=== PATIENT | female | born 1940 | race Caucasian/White ===

== ENCOUNTER 2024-03-20 11:48 | Inpatient (IN) | payer MEDICARE, BC, SELFPAY ==
[2024-03-20 11:49] VITALS: BP 92/72; PULSE 110; RESP 20; TEMP 35.7; O2SAT 97; BMI 34.4
--- NOTE | 2024-03-20 12:06 | EDS_ITS ---
<Statement entered by Cody Uribe DO - 03/20/24 13:36> I have personally performed a face to face assessment of the patient and have reviewed the FISH Note. Patient was seen and examined with Lukasz All components of the history and physical confirmed and agreed. History of present illness and physical exam: Patient is a 83-year-old female past medical history of hypertension, hyperlipidemia, hypothyroidism who presented to the emergency department with 2- 1/2 days of redness and pain to the right lower extremity. She states that she did have a procedure done to take off a squamous cell carcinoma that was biopsied on March 04. She notes that she is supposed to have this fully removed later on here coming up. Patient states that she has had chills and shaking and generalized not feeling well with the redness. She notes that yesterday she developed redness in her thigh denies any injuries to the areas. Patient states that she has not anything like this happen in the past. Patient denies any recent antibiotic use. Review of systems: Agree with above Physical exam General: Patient was lying in bed rest comfortably did not appear to be in acute distress Head: Atraumatic, normocephalic Eyes: PERRL bilaterally, EOMI bilaterally, no conjunctival injection noted Neck: Soft, supple, trachea midline Cardiovascular: Regular rate and rhythm no murmurs gallops rubs noted Respiratory: Clear to auscultation bilaterally Abdomen: Soft, nondistended, nontender to palpation, bowel sounds present x 4 Genitourinary: No rashes or lesions noted. No concern for Dia's gangrene Extremities: +5/5 strength noted in the bilateral lower extremities, no pedal edema on exam, patient does have erythema noted to the right lower extremity in the dorsum of the foot this is warm to the touch. Patient also has erythema in the anterior portion of her right thigh. All compartments are soft and compressible. DP pulses +2/4 in the bilateral lower extremities Neurological: Patient following commands knew that she was at [facility] year is 2023. Sensation grossly intact Skin: Warm, dry, see extremities. No sloughing skin no petechia no purpura MDM Patient is a 83-year-old female who presents to the emergency department chief complaint of concern for right lower extremity cellulitis. Patient will have a workup performed here on the differential diagnose includes but limited to cellulitis, erysipelas, DVT although do feel this less likely as she has no history of DVT no recent travel history no recent trauma, thrombophlebitis. Once workup is obtained reviewed she will be reevaluated. Patient's CBC reviewed with significant leukocytosis 21,000, hemoglobin stable at 14.5, platelet count normal at 229. Patient's lactic acid was 2, glucose normal at 121. Patient sodium normal at 137, potassium normal 3.1, creatinine was 1.24. Patient's x-rays are pending we will follow-up on these. At this point I do believe the patient warrants admission to the hospital she given IV antibiotics Rocephin and vancomycin. Patient's case was discussed with hospitalist by nurse practitioner Lukasz who accept the patient for admission. Patient was notified with all question concerns answered. Final impression: Right lower extremity cellulitis Disposition: Patient will be admitted to the hospital for further evaluation management Supervising attending attestation: Cody BRANDON History of Present Illness Chief Complaint: Cellulitis Narrative Narrative: Patient is 83-year-old female with history of hypertension hyperlipidemia, hypothyroidism who presents to the emerged department with 2-1/2 days of redness, pain to the right lower extremity. Patient did have a dermatologic procedure to take a scab off a wound on the right lower leg March 04. Patient noticed the redness 2 days ago. Denies any fever or chills. Denies any history of diabetes. She is concerned secondary to the redness is getting worse is mostly around her foot ankle as well as her upper thigh. Here for evaluation [facility] Social History Smoking Status: Never smoker ROS ROS ED ROS Narrative Constitutional: Negative for fever, chills, weight loss, weakness Eyes: Negative for vision loss, vision change, double vision ENT: Negative for any sore throat, ear pain, congestion Cardiovascular: Negative for any chest pain, tightness, palpitations Respiratory: Negative for any cough, sputum production, hemoptysis, dyspnea, dyspnea on exertion, orthopnea Gastrointestinal: Negative for any abdominal pain, nausea, vomiting, diarrhea, constipation, blood in stool, blood in vomit : Negative for any urinary frequency, dysuria, retention, blood in urine Muscle skeletal: Negative for any neck pain, back pain Neurological: Negative for any headache, syncope, dizziness Skin: Negative for any rashes, itching, abrasions, lacerations. Positive for redness, pain to the right ankle, right thigh Psychiatric: Negative for any depression, anxiety, stress, suicidal ideation, homicidal ideation Hematologic: Negative for any excessive bruising, easy bleeding EXAM Physical Exam Narrative Exam Narrative: Vital signs reviewed. HEET: Head normocephalic atraumatic, TMs clear bilaterally. Posterior pharynx is clear, moist mucous membranes. Nares clear bilaterally. Neck: Supple with no lymphadenopathy or tenderness. No signs of meningismus. Cardiac: Regular rate and rhythm no murmurs gallops or rubs, equal peripheral pulses bilaterally. Respiratory: Lungs clear to auscultation bilaterally. No chest tenderness. Abdomen: Soft, nontender, nondistended. No abdominal bruit or pulsatile masses. No hepatosplenomegaly Extremities: Patient's right lower extremity does show some erythema, warmth to the dorsal aspect of the foot, lateral and medial malleoli area. Patient also has an area of redness to the right thigh. +2 pedal pulse. No pain to the posterior leg. There is no significant redness to the calf. Neuro: Cranial nerves II through XII intact, no focal neurological deficits. Skin: Clean dry and intact with no rash, purpura, petechiae, vesicles or pustules. Backs/flank: No CVA tenderness, no midline spinal tenderness, no deformity. Psych: Normal mood and affect. No SI, HI or acute psychosis. Const Vital Signs: 03/20/24 11:49 Temperature 96.2 F L Temperature Source Temporal Pulse Rate 110 H Respiratory Rate 20 H Blood Pressure 92/72 Blood Pressure Mean 78 Pulse Ox 97 Oxygen Delivery Method Room Air [facility] Lab Data Labs: Laboratory Results - last 24 hr 03/20/24 12:12 WBC 21.8 H RBC 4.55 Hgb 14.5 Hct 44.3 MCV 97.4 MCH 31.9 MCHC 32.7 RDW Std Deviation 49.1 H RDW Coeff of Lewis 13.6 Plt Count 229 MPV 9.4 Immature Gran % (Auto) 0.700 Neut % (Auto) 87.0 H Lymph % (Auto) 5.2 L [place] % (Auto) 6.9 Eos % (Auto) 0.0 Baso % (Auto) 0.2 Absolute Neuts (auto) 18.9 H Absolute Lymphs (auto) 1.13 Nucleated RBC % 0 Diff Path Review May foll Reactive Lymphocytes 1+ Sodium 137 Potassium 3.1 L Chloride 103 Carbon Dioxide 27.0 Anion Gap 7 BUN 20 H Creatinine 1.24 H Estim Creat Clear Calc 36.06 Est GFR (MDRD) Af Amer 53 L Est GFR (MDRD) Non-Af 44 L BUN/Creatinine Ratio 16.1 Glucose 121 H Lactic Acid 2.0 Calcium 9.4 Treatment and Re-Evaluation :: Differential diagnosis includes however is not limited to: DVT, right leg cellulitis, thrombophlebitis, injury Patient appears to be in no obvious respiratory distress, patient's vital signs are stable, patient is nontoxic-appearing. Presenting to the emerged part with redness to the right foot ankle and right upper thigh. My biggest concern is cellulitis. Patient is not diabetic, is not immunocompromise. Patient will receive basic laboratory values, BMP CBC lactic. Laboratory values show a leukocytosis with white blood count of 21.8, patient's chemistries show a potassium of 3.1, creatinine 1.24, lactic acid was 2.0. Patient will receive x-rays of her right thigh, foot and ankle. This is to ensure there is no gas or necrotizing fasciitis. Secondary these findings, the aggressiveness of the cellulitis, I do believe the patient would benefit from admission. Patient be given 1 L normal saline, 2 sets of blood cultures, IV vancomycin, Rocephin will be ordered. Patient will need to be admitted to the hospital. I will speak to the hospitalist. Discharge Plan Triage Chief Complaint: Cellulitis ED Midlevel Provider: Lukasz Caballero ED Provider: Cody Uribe Dx/Rx/DC Orders Clinical Impression: Cellulitis, Leukocytosis, Acute leg pain Primary Care Provider: Kang Keenan Referrals: Kang Keenan MD [Primary Care Provider] - Print Language: Kinyarwanda Disposition Disposition: Acute Care Hospital [facility]
[2024-03-20 12:19] LABS: Absolute Lymphocyte Count 1.13 X10^3/uL (0.83-4.51); Absolute Neutrophil Count 18.9 X10^3/uL (2.0-7.7); Basophil# 0.05 X10^3/uL; Basophil% 0.2 % (0-1); Eosinophil# 0.01 X10^3/uL; Hematocrit 44.3 % (37-47); Hemoglobin 14.5 g/dL (12.0-15.0); Lymphocyte # 1.13 X10^3/ul (0.83-4.51); Lymphocyte % 5.2 % (19-41); Mean Corp Hgb Conc 32.7 g/dL (32-36); Mean Corpuscular Hgb 31.9 pg (27.0-32.0); Mean Corpuscular Volume 97.4 fL (81-99); Mean Platelet Vol. 9.4 fl (6.2-12.0); Monocyte# 1.51 X10^3/uL; Monocyte% 6.9 % (0-10); NRBC Flagged by Analyzer 0 % (0-5); Neutrophil # 18.92 X10^3/uL (2.7-7.7); POSITIVE DIFFERENTIAL YES; Platelet Count 229 K/mm3 (150-450); RBC Distribution Width CV 13.6 % (11.6-14.6); RBC Distribution Width SD 49.1 fl (35.1-43.9); Red Blood Count 4.55 M/mm3 (4.2-5.4); White Blood Count 21.8 K/mm3 (4.4-11.0)
[2024-03-20 12:20] LABS: Differential Indicated SCAN CRITERIA MET
[2024-03-20 12:33] LABS: Anion Gap 7 (5-15); BUN 20 mg/dL (7-18); BUN/Creat Ratio 16.1 RATIO (10-20); Calcium,Total 9.4 mg/dL (8.5-10.1); Chloride 103 mmol/L (98-107); Creatinine, Serum 1.24 mg/dL (0.55-1.02); EST Glomerular Filtration Rate 44 mL/min (>60); Est Glom Filt Rate - Afr Amer 53 mL/min (>60); Estimated Creatinine Clearance 36.06 ml/min; Glucose 121 mg/dL (74-106); Potassium 3.1 mmol/L (3.5-5.1); Sodium Level 137 mmol/L (136-145)
[2024-03-20 12:39] LABS: Reactive Lymphocyte 1+
--- NOTE | 2024-03-20 12:50 | RAD_ITS ---
INDICATION: cellulitis EXAMINATION/TECHNIQUE: X-RAY - RIGHT XR Foot Min 3 Views 3 VIEWS COMPARISON: No relevant prior comparison study available FINDINGS: SOFT TISSUES: Soft tissue swelling over the dorsal aspect of the foot. No gas is seen in the soft tissues. No radiopaque foreign body. BONES/JOINTS: No acute fracture or subluxation.. Plantar calcaneal spur. Preservation of the joint space.. No sclerotic or destructive changes observed. RAD/Foot min 3 Views IMPRESSION: Mild soft tissue swelling. No evidence of acute osseous changes. Electronically Signed: Jay Lester MD at 13:47 EDT ,
--- NOTE | 2024-03-20 12:50 | RAD_ITS ---
INDICATION: cellulitis EXAMINATION/TECHNIQUE: X-RAY - RIGHT XR Ankle Min 3 Views 3 VIEWS COMPARISON: FINDINGS: SOFT TISSUES: Diffuse soft tissue swelling. No radiopaque foreign body. BONES/JOINTS: No acute fracture or subluxation.. Small plantar calcaneal spur. Preservation of the joint space.. No sclerotic or destructive changes observed. RAD/Ankle min 3 Views IMPRESSION: Soft tissues swelling. No evidence of acute fracture. Electronically Signed: Jay Lester MD at 13:44 EDT ,
--- NOTE | 2024-03-20 12:50 | RAD_ITS ---
INDICATION: cellulites EXAMINATION/TECHNIQUE: X-RAY - RIGHT XR Femur Min 2 Views 4 VIEWS COMPARISON: No relevant prior comparison study available FINDINGS: SOFT TISSUES: No soft tissue swelling or gas. No radiopaque foreign body. BONES/JOINTS: No acute fracture or subluxation.. Right hip hemiarthroplasty satisfactory alignment. . No sclerotic or destructive changes observed. RAD/Femur Min 2 Views IMPRESSION: Right hip arthroplasty. Unremarkable soft tissues. Electronically Signed: Jay Lester MD at 13:46 EDT ,
[2024-03-20 12:51] VITALS: BP 116/65; PULSE 89; RESP 16; TEMP 36.5; O2SAT 97
[2024-03-20] MEDS: 0.9% Normal Saline (1000mL) 1,000 ML 999 ML IV (13:10)
--- NOTE | 2024-03-20 13:22 | PCM.HP.STD ---
[facility] - General General Date of Service: 03/20/24 Chief Complaint: malaise. RLE rashes. [facility] Narrative JAZZY ROBLERO, is a 83 F who presents with RLE rash. This is an 83-year-old female with a history of hypothyroidism presents with rash on her right leg. States that Thursday, she was not feeling well was having some low-grade fevers, general malaise and some nausea. Developed a rash on her right ankle as well as her right upper thigh. About 2 weeks ago, she had a biopsy. Found to be squamous cell skin cancer on her upper medial calf on her right leg. Had no issues with that. The area of cellulitis is not confluent with that region, however. She presented to the emergency room and received ceftriaxone and vancomycin. Though the patient was stable, her white count was 20,000 which the hospital service was contacted for admission. [facility] Medical History (Updated 03/20/24 @ 13:35 by Felicia Fontanez) Carpal tunnel syndrome of right wrist Anxiety Hyperlipidemia Hypertension Hypothyroid Home Medications ?Medication ?Instructions ?Recorded ?Last Taken ?Type alprazolam 0.25 mg tablet 0.125 mg PO DAILY PRN anxiety 03/20/24 Unknown History aspirin 81 mg tablet,delayed 81 mg PO DAILY HEART HEALTH 03/20/24 Unknown History release (Adult Aspirin Regimen) latanoprost 0.005 % eye drops 1 drp LEFT EYE QHS OTHER 03/20/24 Unknown History levothyroxine 137 mcg tablet 137 mcg PO DAILY THYROID 03/20/24 Unknown History lisinopril 20 1 tab PO DAILY BLOOD PRESSURE 03/20/24 Unknown History mg-hydrochlorothiazide 25 mg tablet lovastatin 20 mg tablet 20 mg PO DAILY CHOLESTEROL 03/20/24 Unknown History omeprazole 40 mg capsule,delayed 40 mg PO DAILY GERD 03/20/24 Unknown History release Allergy/AdvReac Type Severity Reaction Status Date / Time No Known Allergies Allergy Verified 03/20/24 13:06 Family History (Updated 03/20/24 @ 13:[address] Kapil Marc DO) Other Heart disease Surgical History (Updated 03/20/24 @ 13:35 by Felicia Fontanez) H/O thyroidectomy H/O: hysterectomy History of hip replacement Social History (Updated 03/20/24 @ 13:[address] Kapil Marc DO) Smoking Status: Never smoker alcohol intake: never substance use type: does not use ROS ROS Narrative All review of systems were negative except as mentioned above in the history of present illness and the other review of systems. Vital Signs Vital Signs Vital Signs: 03/20/24 11:49 Temperature 35.7 C L Temperature Source Temporal Pulse Rate 110 H Respiratory Rate 20 H Blood Pressure 92/72 Blood Pressure Mean 78 Pulse Ox 97 Oxygen Delivery Method Room Air Weight Weight: 85.321 kg Body Mass Index (BMI) 34.4 Physical Exam Const alert and no apparent distress HEENT normocephalic, head/scalp atraumatic and hearing grossly normal bilaterally Neck no lymphadenopathy Resp normal respiratory effort, no retractions and no use of accessory muscles Cardio regular rate, regular rhythm, S1 normal heart sound and S2 normal heart sound GI normal to inspection, nondistended, normoactive bowel sounds, soft to palpation, non-tender and non-distended Extremity normal to inspection Skin Skin Narrative: Skin biopsy site on right medial calf is with scab and without any erythema surrounding. She does have macular erythema around her right foot and ankle that is circumferential. No fluctuance nor induration appreciated. She also has a separate macular region in her right anterior upper thigh. Again without any fluctuance or induration. Results Lab / Micro Data Attestation: I reviewed the patient's lab results. 03/20/24 12:12 03/20/24 12:12 Labs: Laboratory Results - last 24 hr 03/20/24 12:12: WBC 21.8 H, RBC 4.55, Hgb 14.5, Hct 44.3, MCV 97.4, MCH 31.9, MCHC 32.7, RDW Std Deviation 49.1 H, RDW Coeff of Lewis 13.6, Plt Count 229, MPV 9.4, Immature Gran % (Auto) 0.700, Neut % (Auto) 87.0 H, Lymph % (Auto) 5.2 L, [place] % (Auto) 6.9, Eos % (Auto) 0.0, Baso % (Auto) 0.2, Absolute Neuts (auto) 18.9 H, Absolute Lymphs (auto) 1.13, Nucleated RBC % 0, Diff Path Review May foll, Reactive Lymphocytes 1+, Sodium 137, Potassium 3.1 L, Chloride 103, Carbon Dioxide 27.0, Anion Gap 7, BUN 20 H, Creatinine 1.24 H, Estim Creat Clear Calc 36.06, Est GFR (MDRD) Af Amer 53 L, Est GFR (MDRD) Non-Af 44 L, BUN/Creatinine Ratio 16.1, Glucose 121 H, Lactic Acid 2.0, Calcium 9.4 Assessment & Plan Assessment/Plan (1) Cellulitis: PLAN: Meets sepsis criteria based on SIRS 3/4. Though her qSOFA is 1. IV fluids. RLE cellulitis with 2 separate lesions the right ankle region as well as right upper thigh. The right upper thigh may be more reactive but certainly concerning that there could be a separate cellulitis. Particular if the patient self inoculated. Continue with antibiotics with ampicillin/sulbactam and vancomycin. Monitor for improvement. Anticipate the patient would require 1 to 2 days of IV antibiotics given her initial presentation. PLAN: Plan Chronic conditions Hypothyroidism: Continue levothyroxine Hyperlipidemia: Continue with statin Hypertension: Continue with lisinopril/HCTZ VTE prophylaxis with enoxaparin CODE STATUS: Addressed with the patient. Patient wishes to be full code. Discussed with the patient's family at bedside.
[2024-03-20] MEDS: Ceftriaxone 1 GM/50 ML BAG IV (13:26)
[2024-03-20 13:51] VITALS: BP 116/65; PULSE 76; RESP 18; TEMP 36.4; O2SAT 98
[2024-03-20 14:00] VITALS: BP 105/66; PULSE 87; RESP 18; TEMP 36.3; O2SAT 98
[2024-03-20 14:02] VITALS: BMI 34.4
[2024-03-20] MEDS: Vancomycin HCl 2,000 MG in 0.9% Normal Saline (500mL Bag) 500 ML 250 MG IV (15:27)
--- NOTE | 2024-03-20 15:40 | PCM.RX.CS ---
Consult Antibiotic Management Pharmacy has been consulted to manage selected antibiotic: Vancomycin Type of Intervention Type of Consult: New start Suspected Infection Suspected Infection: Skin/Soft tissue Prior Doses of Antibiotics Prior Doses of Antibiotics Received/Current Regimen: Vancomycin 2000 mg IV x 1 given 03/22/24 @ 1530 Labs Labs: Sodium 137 mmol/L (136-145) 03/20/24 12:12 Potassium 3.1 mmol/L (3.5-5.1) L 03/20/24 12:12 Chloride 103 mmol/L (98-107) 03/20/24 12:12 Carbon Dioxide 27.0 mmol/L (21.0-32.0) 03/20/24 12:12 Anion Gap 7 (5-15) 03/20/24 12:12 BUN 20 mg/dL (7-18) H 03/20/24 12:12 Creatinine 1.24 mg/dL (0.55-1.02) H 03/20/24 12:12 Est GFR (MDRD) Af Amer 53 mL/min (>60) L 03/20/24 12:12 Est GFR (MDRD) Non-Af 44 mL/min (>60) L 03/20/24 12:12 BUN/Creatinine Ratio 16.1 RATIO (10-20) 03/20/24 12:12 Glucose 121 mg/dL (74-106) H 03/20/24 12:12 Dosing Weight Weight used for dosin kg Estimated Creatinine Clearance Estimated Creatinine Clearance: ~36 Goal Trough Goal Trough: 15-20 mcg/mL Pharmacy Plan for Drug Dosing Pharmacy Plan for Drug Dosing: Vancomycin 2000 mg IV loading dose x 1, followed by 1250 mg Q24H Pharmacy Service will continue to monitor and adjust dosing as required. Follow-Up Labs Follow-Up Labs: Trough: Vancomycin Date/Time Labs Ordered Labs to be done on [date and time ordered]: 03/22/24 @ 1530
[2024-03-20 16:15] LABS: Reflex Lactate? Y
[2024-03-20 17:22] LABS: Lactic Acid 1.2 mmol/L (0.4-1.9)
[2024-03-20] MEDS: Ampicillin/Sulbactam 3 GM in 0.9% Normal Saline (100mL MB+) 100 ML IV ×2 (18:35→22:27)
[2024-03-20] MEDS: Latanoprost 0.005% 1 Bottle 1 DRP LEFT EYE (22:27)
[2024-03-20 22:31] VITALS: BP 140/75; PULSE 80; RESP 16; TEMP 37.2; O2SAT 97
[2024-03-21 02:48] VITALS: BP 120/77; PULSE 92; RESP 16; TEMP 37.3; O2SAT 95
[2024-03-21 03:56] LABS: Absolute Lymphocyte Count 0.86 X10^3/uL (0.83-4.51); Absolute Neutrophil Count 11.3 X10^3/uL (2.0-7.7); Basophil# 0.04 X10^3/uL; Basophil% 0.3 % (0-1); Eosinophil# 0.05 X10^3/uL; Eosinophils% 0.4 % (0-5); Hematocrit 40.2 % (37-47); Hemoglobin 12.9 g/dL (12.0-15.0); Lymphocyte # 0.86 X10^3/ul (0.83-4.51); Lymphocyte % 6.5 % (19-41); Mean Corp Hgb Conc 32.1 g/dL (32-36); Mean Corpuscular Hgb 31.1 pg (27.0-32.0); Mean Corpuscular Volume 96.9 fL (81-99); Mean Platelet Vol. 9.8 fl (6.2-12.0); Monocyte# 0.92 X10^3/uL; Monocyte% 6.9 % (0-10); NRBC Flagged by Analyzer 0 % (0-5); Neutrophil # 11.31 X10^3/uL (2.7-7.7); Neutrophil % 85.4 % (47-70); Platelet Count 222 K/mm3 (150-450); RBC Distribution Width CV 13.7 % (11.6-14.6); RBC Distribution Width SD 49.1 fl (35.1-43.9); Red Blood Count 4.15 M/mm3 (4.2-5.4); White Blood Count 13.3 K/mm3 (4.4-11.0)
[2024-03-21 04:16] LABS: Anion Gap 5 (5-15); BUN 19 mg/dL (7-18); BUN/Creat Ratio 24.2 RATIO (10-20); Calcium,Total 9.2 mg/dL (8.5-10.1); Chloride 105 mmol/L (98-107); Creatinine, Serum 0.79 mg/dL (0.55-1.02); EST Glomerular Filtration Rate 75 mL/min (>60); Est Glom Filt Rate - Afr Amer 90 mL/min (>60); Estimated Creatinine Clearance 55.89 ml/min; Glucose 124 mg/dL (74-106); Potassium 3.1 mmol/L (3.5-5.1); Sodium Level 139 mmol/L (136-145)
[2024-03-21] MEDS: Levothyroxine 137 MCG Tablet PO (05:55)
[2024-03-21] MEDS: Ampicillin/Sulbactam 3 GM in 0.9% Normal Saline (100mL MB+) 100 ML IV ×4 (05:55→23:44)
--- NOTE | 2024-03-21 07:21 | PCM.RX.CS ---
Consult Antibiotic Management Pharmacy has been consulted to manage selected antibiotic: Vancomycin Type of Intervention Type of Consult: Follow-up Suspected Infection Suspected Infection: Skin/Soft tissue Labs Labs: Sodium 139 mmol/L (136-145) 03/21/24 03:29 Potassium 3.1 mmol/L (3.5-5.1) L 03/21/24 03:29 Chloride 105 mmol/L (98-107) 03/21/24 03:29 Carbon Dioxide 29.0 mmol/L (21.0-32.0) 03/21/24 03:29 Anion Gap 5 (5-15) 03/21/24 03:29 BUN 19 mg/dL (7-18) H 03/21/24 03:29 Creatinine 0.79 mg/dL (0.55-1.02) 03/21/24 03:29 Est GFR (MDRD) Af Amer 90 mL/min (>60) 03/21/24 03:29 Est GFR (MDRD) Non-Af 75 mL/min (>60) 03/21/24 03:29 BUN/Creatinine Ratio 24.2 RATIO (10-20) H 03/21/24 03:29 Glucose 124 mg/dL (74-106) H 03/21/24 03:29 Goal Trough Goal Trough: 15-20 mcg/mL Pharmacy Plan for Drug Dosing Pharmacy Plan for Drug Dosing: DAILY ASSESSMENT Current Vancomycin Dose: 1250mg Q24H Number of Doses Received: 2000mg x1 loading dose Current Renal Function: sCr 0.79 Renal Function Trend: improved Lab/Micro: pending Any Change in Vanc Plan: Yes - adjust Vancomycin dosing regimen to 750mg Q12H based on improved renal function Pending Level: Vancomycin trough @ 07:30 03/22/24 Pharmacy Service will continue to monitor and adjust dosing as required. Follow-Up Labs Follow-Up Labs: Trough: Vancomycin (07:30 03/22/24)
[2024-03-21 08:14] VITALS: BP 125/75; PULSE 85; RESP 18; TEMP 37.1; O2SAT 100
[2024-03-21] MEDS: Potassium Chloride Oral Tablet 20 MEQ 40 MEQ PO (08:21)
[2024-03-21] MEDS: Vancomycin HCl 750 MG in 0.9% Normal Saline (250mL Bag) 250 ML 250 MG IV ×2 (08:21→20:29)
--- NOTE | 2024-03-21 09:30 | VDLE_ITS ---
Reason For Study: Right leg edema RIGHT LEFT GSV is normal. CFV is compressible, spontaneous, phasic, CFV is compressible, spontaneous, phasic, competent, and demonstrates normal competent and demonstrates normal augmentation. augmentation. FV is compressible, spontaneous, phasic, competent and demonstrates normal augmentation. POP V is compressible, spontaneous, phasic, competent and demonstrates normal augmentation. T/P Trunk is compressible. PTV is compressible. RT PerV is compressible. Vascularized structures noted in the right groin, lagest measures 1.16 x 3.99 cm. Procedure This is a venous duplex using B-mode, color flow and spectral Doppler. Exam performed portable in patient room. A preliminary report was called and/or faxed to financial planning consultant. VL/Venous Duplex US, Unilateral Interpretation Summary Deep veins of the right lower extremity are patent and compressible segmentally . There is no evidence of right lower extremity deep vein thrombosis. Valvular competence prem ears intact within the proximal deep venous system on the right . The right great saphenous vein a ppears patent and compressible segmentally. Several vascularized structures are noted in the righ t groin, which may represent lymphadenopathy. Clinical correlation is advised. The left common fem oral vein is patent and compressible . Ordering Physician: Catherine Johnson Referring Physician: Kang Keenan Performed By: Alesha Gonsales RVT
[2024-03-21] MEDS: 0.9% Saline Lock 10 ML Syringe IV (09:41)
[2024-03-21] MEDS: hydroCHLOROthiazide 25 MG Tablet PO (10:19)
[2024-03-21] MEDS: Atorvastatin Calcium 10 MG Tablet 5 MG PO (10:19)
[2024-03-21] MEDS: Aspirin E.C. 81 MG Tablet PO (10:19)
[2024-03-21] MEDS: Pantoprazole Sodium 40 MG Tablet PO (10:20)
[2024-03-21] MEDS: Enoxaparin 40 MG/0.4 ML Syringe SC (10:20)
[2024-03-21 10:33] LABS: Pathologist Review Reviewed
--- NOTE | 2024-03-21 10:40 | CASEMGMT ---
DAWSON ZAFAR Assessment: Face to Face with pt for initial transition planning/care coordination assessment. DAWSON ZAFAR introduced self and role at [facility], pt voices understanding and consents to assessment. Pt is A&O x4 and answers all questions appropriately at this time. Pt sitting up in bed with dtr at bedside. Pt agreeable to completing assessment with dtr present. Care providers, pharmacy, and demographics verified/updated. Admitting Dx: cellulitis Strata Score: 1 PCP:Shlomo Specialists:[facility]- appt in Apr for new pt; polly Benitez Preferred Pharmacy: [facility] Retail Insurance: eyefactive Prescription Benefit: yes LNOK: Hilary Burrows, dtr; Adi Proctor, son Living Arrangements: Pt lives alone in a single story home with 3 steps to enter. Pt reports she is I in ADLs and denies concerns at home. Transportation: Pt drives self and denies concerns with transportation. DME:cane but does not use HHC/SNF: Denies hx of Pt states no concerns with going home at time of dc. Wounds on legs open to air. Pt states no further concerns/needs. CM to follow. Advised pt to ask CM if any further question/concerns/needs arise, voices understanding. Pt Goal: Home Plan: Home Francine OSMAN CM
--- NOTE | 2024-03-21 12:16 | NURSING ---
verbal report given to Kye OSMAN
[2024-03-21 13:57] VITALS: PULSE 90
[2024-03-21 14:08] VITALS: BP 132/72; PULSE 94; RESP 18; TEMP 36.8; O2SAT 95
[2024-03-21] MEDS: Mineral Oil/Petrolatum Cr 1.75oz Bottle 1 APPLIC TOPICAL ×2 (14:11→20:31)
--- NOTE | 2024-03-21 15:08 | PN_ITS ---
Subjective Subjective Patient seen and examined. She had no active complaitns. She feels the redness on her RLE is improving. She denied any fever, chills, cough, chest pain, palpitations, dizziness, nausea, vomiting or any other symptoms. Review of systems is otherwise negative. She has remained hemodynamically stable. Objective Data Objective Data Vital Signs: Vital Signs Temp Pulse Resp BP Pulse Ox O2 Del Method 98.2 F 94 18 132/72 H 95 Room Air 03/21/24 14:08 03/21/24 14:08 03/21/24 14:08 03/21/24 14:08 03/21/24 14:08 03/21/24 14:08 Oxygen Delivery Method Room Air Weight: 188 lb 1.6 oz Body Mass Index (BMI) 34.4 Intake & Output: Intake and Output for Last 24 Hours 03/19/24 03/20/24 03/21/24 23:59 23:59 23:59 Intake Total 2234 / 2234 939 / 939 Balance 2234 / 2234 939 / 939 Lab / Micro Data 03/21/24 03:29 03/21/24 03:29 Labs: Laboratory Results - last 24 hr 03/20/24 12:12: Diff Path Review Reviewed 03/20/24 16:35: Lactic Acid 1.2 03/21/24 03:29: WBC 13.3 H, RBC 4.15 L, Hgb 12.9, Hct 40.2, MCV 96.9, MCH 31.1, MCHC 32.1, RDW Std Deviation 49.1 H, RDW Coeff of Lewis 13.7, Plt Count 222, MPV 9.8, Immature Gran % (Auto) 0.500, Neut % (Auto) 85.4 H, Lymph % (Auto) 6.5 L, [place] % (Auto) 6.9, Eos % (Auto) 0.4, Baso % (Auto) 0.3, Absolute Neuts (auto) 11.3 H, Absolute Lymphs (auto) 0.86, Nucleated RBC % 0, Sodium 139, Potassium 3.1 L, Chloride 105, Carbon Dioxide 29.0, Anion Gap 5, BUN 19 H, Creatinine 0.79, Estim Creat Clear Calc 55.89, Est GFR (MDRD) Af Amer 90, Est GFR (MDRD) Non-Af 75, BUN/Creatinine Ratio 24.2 H, Glucose 124 H, Calcium 9.2 Physical Exam Const alert, oriented x3, no apparent distress and well nourished General Appearance: cooperative and well developed HEENT normocephalic, head/scalp atraumatic, moist oral mucous membranes and oropharynx normal Eyes PERRL and EOMs intact bilaterally Neck no lymphadenopathy and supple Lymph Lymphatic: no lymphadenopathy noted and no lymphedema noted Resp normal respiratory effort, normal air movement and clear to auscultation bilaterally Cardio regular rate, regular rhythm, S1 normal heart sound, S2 normal heart sound and no murmurs GI normal to inspection, nondistended, normoactive bowel sounds, soft to palpation, non-tender and non-distended Extremity normal capillary refill, no clubbing, cyanosis or edema and no calf tenderness Skin Skin Narrative: erythema of RLE: erythema in RLE upper inner thigh is improving; erythema on RLE lower delvalle, mild differential warmth. Has excoriations on lower extremity. Neuro CN's II-XII intact bilaterally, no focal motor deficits, no sensory deficits noted and deep tendon reflexes 2+ bilaterally Motor Exam: strength 5/5 throughout and general weakness Psych thought process normal, cooperative and affect normal Appearance: appropriate Assessment & Plan Assessment/Plan (1) Cellulitis: PLAN: Plan #RLE cellulitis * eythema of RLE thigh is improving. * on IV unasyn and vancomycin. * Duplex of RLE done is negative for any evidence of DVT * continue antibiotics. * WBC was 21.8 and has trended down to 13.3.\ * #Hypokalemia: K is 3.1. Will replace and trend. #Hypothyroidism; on synthroid. #Hyperlipidemia: on statin #Hypertension; on lisinopril and HCTZ. IV hydralazine prn DVT prophylaxis: lovenox. Charges/Coding Visit Charges Inpatient E&M: 51072 Subs Hosp L2
[2024-03-21] MEDS: Latanoprost 0.005% 1 Bottle 1 DRP LEFT EYE (20:32)
[2024-03-21 20:34] VITALS: BP 140/74; PULSE 95; RESP 16; TEMP 36.7; O2SAT 95
[2024-03-22 05:56] VITALS: BP 135/69; PULSE 81; RESP 16; TEMP 36.7; O2SAT 95
[2024-03-22] MEDS: Ampicillin/Sulbactam 3 GM in 0.9% Normal Saline (100mL MB+) 100 ML IV ×3 (05:57→17:39)
[2024-03-22] MEDS: Levothyroxine 137 MCG Tablet PO (05:58)
[2024-03-22] MEDS: 0.9% Normal Saline (250mL Bag) 250 ML 15 ML IV (06:01)
[2024-03-22 07:01] LABS: Absolute Lymphocyte Count 1.37 X10^3/uL (0.83-4.51); Absolute Neutrophil Count 6.3 X10^3/uL (2.0-7.7); Basophil# 0.04 X10^3/uL; Basophil% 0.5 % (0-1); Eosinophil# 0.22 X10^3/uL; Eosinophils% 2.5 % (0-5); Hematocrit 38.1 % (37-47); Hemoglobin 12.4 g/dL (12.0-15.0); Lymphocyte # 1.37 X10^3/ul (0.83-4.51); Lymphocyte % 15.5 % (19-41); Mean Corp Hgb Conc 32.5 g/dL (32-36); Mean Corpuscular Hgb 31.5 pg (27.0-32.0); Mean Corpuscular Volume 96.7 fL (81-99); Mean Platelet Vol. 9.8 fl (6.2-12.0); Monocyte# 0.94 X10^3/uL; Monocyte% 10.6 % (0-10); NRBC Flagged by Analyzer 0 % (0-5); Neutrophil # 6.25 X10^3/uL (2.7-7.7); Neutrophil % 70.4 % (47-70); Platelet Count 239 K/mm3 (150-450); RBC Distribution Width CV 13.4 % (11.6-14.6); RBC Distribution Width SD 48.7 fl (35.1-43.9); Red Blood Count 3.94 M/mm3 (4.2-5.4); White Blood Count 8.9 K/mm3 (4.4-11.0)
[2024-03-22 07:35] LABS: Anion Gap 7 (5-15); BUN 17 mg/dL (7-18); BUN/Creat Ratio 27.2 RATIO (10-20); Calcium,Total 9.2 mg/dL (8.5-10.1); Chloride 107 mmol/L (98-107); Creatinine, Serum 0.63 mg/dL (0.55-1.02); EST Glomerular Filtration Rate 97 mL/min (>60); Est Glom Filt Rate - Afr Amer 117 mL/min (>60); Estimated Creatinine Clearance 55.89 ml/min; Glucose 98 mg/dL (74-106); Potassium 3.1 mmol/L (3.5-5.1); Sodium Level 141 mmol/L (136-145)
[2024-03-22 08:47] LABS: Vancomycin, Trough Level 9.8 ug/mL (5.0-15.0)
--- NOTE | 2024-03-22 09:04 | PCM.RX.CS ---
Consult Antibiotic Management Pharmacy has been consulted to manage selected antibiotic: Vancomycin Type of Intervention Type of Consult: Follow-up Suspected Infection Suspected Infection: Skin/Soft tissue Prior Doses of Antibiotics Prior Doses of Antibiotics Received/Current Regimen: current dose is vanc 750mg IV q12h Labs Labs: Sodium 141 mmol/L (136-145) 03/22/24 06:08 Potassium 3.1 mmol/L (3.5-5.1) L 03/22/24 06:08 Chloride 107 mmol/L (98-107) 03/22/24 06:08 Carbon Dioxide 27.0 mmol/L (21.0-32.0) 03/22/24 06:08 Anion Gap 7 (5-15) 03/22/24 06:08 BUN 17 mg/dL (7-18) 03/22/24 06:08 Creatinine 0.63 mg/dL (0.55-1.02) 03/22/24 06:08 Est GFR (MDRD) Af Amer 117 mL/min (>60) 03/22/24 06:08 Est GFR (MDRD) Non-Af 97 mL/min (>60) 03/22/24 06:08 BUN/Creatinine Ratio 27.2 RATIO (10-20) H 03/22/24 06:08 Glucose 98 mg/dL (74-106) 03/22/24 06:08 Vancomycin Trough 9.8 ug/mL (5.0-15.0) 03/22/24 08:01 Dosing Weight Weight used for dosin.3 kg Estimated Creatinine Clearance Estimated Creatinine Clearance: 56 ml/min Goal Trough Goal Trough: 15-20 mcg/mL Pharmacy Plan for Drug Dosing Pharmacy Plan for Drug Dosing: The vanc trough drawn at 08:01 today (approx 11.5 hours after the previous dose) was 9.8. This is below goal so will increase dose to 1000mg IV q12h. Although the patient's CrCl has improved to 56 ml/min today, hesitant to increase the dose too much at once due to patient's age. Will check another trough before the 4th dose. Pharmacy Service will continue to monitor and adjust dosing as required. Follow-Up Labs Follow-Up Labs: Trough: Vancomycin Date/Time Labs Ordered Labs to be done on [date and time ordered]: 03/23/24 21:30
[2024-03-22] MEDS: Aspirin E.C. 81 MG Tablet PO (09:22)
[2024-03-22] MEDS: Atorvastatin Calcium 10 MG Tablet 5 MG PO (09:22)
[2024-03-22] MEDS: hydroCHLOROthiazide 25 MG Tablet PO (09:22)
[2024-03-22] MEDS: Enoxaparin 40 MG/0.4 ML Syringe SC (09:23)
[2024-03-22] MEDS: Lisinopril 20 MG Tablet PO (09:23)
[2024-03-22] MEDS: ALPRAZolam 0.25 MG Tablet 0.125 MG PO (09:30)
[2024-03-22] MEDS: Pantoprazole Sodium 40 MG Tablet PO (09:31)
[2024-03-22] MEDS: Ibuprofen 600 MG Tablet PO ×2 (09:31→22:33)
[2024-03-22] MEDS: Mineral Oil/Petrolatum Cr 1.75oz Bottle 1 APPLIC TOPICAL ×2 (09:50→22:23)
[2024-03-22] MEDS: Vancomycin IV 1,000 MG/200 ML BAG 200 MG IV ×2 (09:52→22:21)
--- NOTE | 2024-03-22 10:20 | PN_ITS ---
Subjective Subjective Patient seen and examined. She does complain of some pain in her right lower extremity. Her right lower extremity also seems to be more swollen relative to yesterday. Erythema still persist. She denies any fever or chills. Review of systems otherwise negative. Objective Data Objective Data Vital Signs: Vital Signs Temp Pulse Resp BP Pulse Ox O2 Del Method 98.1 F 81 16 135/69 H 95 Room Air 03/22/24 05:56 03/22/24 05:56 03/22/24 05:56 03/22/24 05:56 03/22/24 05:56 03/22/24 05:56 Oxygen Delivery Method Room Air Weight: 188 lb 1.6 oz Body Mass Index (BMI) 34.4 Intake & Output: Intake and Output for Last 24 Hours 03/20/24 03/21/24 03/22/24 23:59 23:59 23:59 Intake Total 2234 / 2234 1316 / 1716 1174 / 1174 Balance 2234 / 2234 1316 / 1716 1174 / 1174 Lab / Micro Data 03/22/24 06:08 03/22/24 06:08 Labs: Laboratory Results - last 24 hr 03/20/24 12:12: Diff Path Review Reviewed 03/22/24 06:08: WBC 8.9, RBC 3.94 L, Hgb 12.4, Hct 38.1, MCV 96.7, MCH 31.5, MCHC 32.5, RDW Std Deviation 48.7 H, RDW Coeff of Lewis 13.4, Plt Count 239, MPV 9.8, Immature Gran % (Auto) 0.500, Neut % (Auto) 70.4 H, Lymph % (Auto) 15.5 L, [place] % (Auto) 10.6 H, Eos % (Auto) 2.5, Baso % (Auto) 0.5, Absolute Neuts (auto) 6.3, Absolute Lymphs (auto) 1.37, Nucleated RBC % 0, Sodium 141, Potassium 3.1 L , Chloride 107, Carbon Dioxide 27.0, Anion Gap 7, BUN 17, Creatinine 0.63, Estim Creat Clear Calc 55.89, Est GFR (MDRD) Af Amer 117, Est GFR (MDRD) Non-Af 97, B UN/Creatinine Ratio 27.2 H, Glucose 98, Calcium 9.2 03/22/24 08:01: Vancomycin Trough 9.8 Micro: Microbiology 03/20/24 13:03 Blood Culture (Wb) - Anticubital Right Blood Culture - Preliminary No growth in 48 hours. Physical Exam Const alert, oriented x3, no apparent distress and well nourished General Appearance: cooperative and well developed HEENT normocephalic, head/scalp atraumatic, hearing grossly normal bilaterally, moist oral mucous membranes and oropharynx normal Eyes PERRL and EOMs intact bilaterally Neck no lymphadenopathy and supple Lymph Lymphatic: no lymphadenopathy noted and no lymphedema noted Resp normal respiratory effort, normal air movement, no retractions, no use of accessory muscles and clear to auscultation bilaterally Cardio regular rate, regular rhythm, S1 normal heart sound, S2 normal heart sound and no murmurs GI normal to inspection, nondistended, normoactive bowel sounds, soft to palpation, non-tender and non-distended Extremity Extremity Narrative: RLE is swollen, erythematous over the lower delvalle. Has excoriations over lower extremity. Erythema in RLE upper innerr thigh has largely resolved. Skin Skin Narrative: as under extremity Neuro CN's II-XII intact bilaterally, no focal motor deficits, no sensory deficits noted and deep tendon reflexes 2+ bilaterally Motor Exam: strength 5/5 throughout and general weakness Psych thought process normal, cooperative and affect normal Appearance: appropriate Assessment & Plan Assessment/Plan (1) Cellulitis: PLAN: Plan #RLE cellulitis * eythema of RLE thigh is improving. erythema of RLE over the lower leg area is worsening today. * on IV unasyn and vancomycin. * Duplex of RLE done is negative for any evidence of DVT * continue antibiotics. * wbc is down to 8.9 today * will apply SHARONDA wraps to RLE * #Hypokalemia: K is still 3.1. Will replace and trend. #Hypothyroidism; on synthroid. #Hyperlipidemia: on statin #Hypertension; on lisinopril and HCTZ. IV hydralazine prn DVT prophylaxis: lovenox. Charges/Coding Visit Charges Inpatient E&M: 43824 Subs Hosp L2
[2024-03-22 12:00] VITALS: BP 152/82; PULSE 88; RESP 16; TEMP 36.4; O2SAT 95
[2024-03-22] MEDS: Potassium Chloride Oral Tablet 20 MEQ 60 MEQ PO (12:28)
[2024-03-22 17:45] VITALS: BP 142/72; PULSE 82; RESP 16; TEMP 36.6; O2SAT 95
[2024-03-22 22:20] VITALS: BP 128/64; PULSE 85; RESP 18; TEMP 36.7; O2SAT 95
[2024-03-22] MEDS: Latanoprost 0.005% 1 Bottle 1 DRP LEFT EYE (22:28)
[2024-03-22] MEDS: Lactobacillis Acidophilus 1 CAP PO (23:16)
[2024-03-23] MEDS: Ampicillin/Sulbactam 3 GM in 0.9% Normal Saline (100mL MB+) 100 ML IV ×3 (00:33→11:40)
[2024-03-23 05:00] VITALS: BP 130/66; PULSE 72; RESP 18; TEMP 36.4; O2SAT 95
[2024-03-23] MEDS: Levothyroxine 137 MCG Tablet PO (05:21)
[2024-03-23 07:27] LABS: Absolute Lymphocyte Count 1.72 X10^3/uL (0.83-4.51); Absolute Neutrophil Count 6.9 X10^3/uL (2.0-7.7); Basophil# 0.07 X10^3/uL; Basophil% 0.7 % (0-1); Eosinophil# 0.42 X10^3/uL; Eosinophils% 4.1 % (0-5); Hemoglobin 12.6 g/dL (12.0-15.0); Lymphocyte # 1.72 X10^3/ul (0.83-4.51); Lymphocyte % 16.7 % (19-41); Mean Corp Hgb Conc 32.3 g/dL (32-36); Mean Corpuscular Hgb 31.3 pg (27.0-32.0); Mean Corpuscular Volume 96.8 fL (81-99); Monocyte# 1.06 X10^3/uL; Monocyte% 10.3 % (0-10); NRBC Flagged by Analyzer 0 % (0-5); Neutrophil # 6.93 X10^3/uL (2.7-7.7); Neutrophil % 67.2 % (47-70); Platelet Count 257 K/mm3 (150-450); RBC Distribution Width CV 13.2 % (11.6-14.6); RBC Distribution Width SD 47.8 fl (35.1-43.9); Red Blood Count 4.03 M/mm3 (4.2-5.4); White Blood Count 10.3 K/mm3 (4.4-11.0)
[2024-03-23 08:11] LABS: Anion Gap 5 (5-15); BUN 12 mg/dL (7-18); Calcium,Total 9.5 mg/dL (8.5-10.1); Chloride 108 mmol/L (98-107); EST Glomerular Filtration Rate 102 mL/min (>60); Est Glom Filt Rate - Afr Amer 124 mL/min (>60); Estimated Creatinine Clearance 55.89 ml/min; Glucose 96 mg/dL (74-106); Potassium 3.5 mmol/L (3.5-5.1); Sodium Level 141 mmol/L (136-145)
[2024-03-23] MEDS: Vancomycin IV 1,000 MG/200 ML BAG 200 MG IV (09:19)
[2024-03-23] MEDS: Pantoprazole Sodium 40 MG Tablet PO (09:20)
[2024-03-23] MEDS: Mineral Oil/Petrolatum Cr 1.75oz Bottle 1 APPLIC TOPICAL (09:20)
[2024-03-23] MEDS: Lactobacillis Acidophilus 1 CAP PO (09:20)
[2024-03-23] MEDS: Enoxaparin 40 MG/0.4 ML Syringe SC (09:20)
[2024-03-23] MEDS: Aspirin E.C. 81 MG Tablet PO (09:20)
[2024-03-23] MEDS: Atorvastatin Calcium 10 MG Tablet 5 MG PO (09:21)
[2024-03-23] MEDS: hydroCHLOROthiazide 25 MG Tablet PO (09:22)
[2024-03-23] MEDS: Lisinopril 20 MG Tablet PO (09:22)
--- NOTE | 2024-03-23 09:52 | DCINST_ITS ---
Discharge Instructions Diet Discharge Diet: Low fat / Low cholesterol Activity Discharge Activity: Return to Normal Activity Weight Bearing Status: Weight bearing as tolerated Dressing / Incision Call your doctor if you observe: Fever of 101 or Higher, Shortness of breath, Dizziness, Swelling in the ankles and Chest pain Follow Up Care Test Results: Test results from this visit will be discussed in further detail at your follow- up appointment, if applicable. Discharge Plan Admission Admit Date/Time: 03/20/24 13:19 Primary Reason for Your Visit: cellulitis Attending Provider: Catherine Johnson Primary Care Provider: Kang Keenan Consulting Providers: Kapil Marc Instructions Patient Instructions: Cellulitis, Cellulitis Dc Discharge Orders/Prescriptions Prescriptions: New cephalexin 500 mg capsule 500 mg PO TID Qty: 21 0RF Continued lovastatin 20 mg tablet 20 mg PO DAILY omeprazole 40 mg capsule,delayed release(DR/EC) 40 mg PO DAILY lisinopril-hydrochlorothiazide 20-25 mg tablet 1 tab PO DAILY aspirin [Adult Aspirin Regimen] 81 mg tablet,delayed release (DR/EC) 81 mg PO DAILY levothyroxine 137 mcg tablet 137 mcg PO DAILY alprazolam 0.25 mg tablet 0.125 mg PO DAILY PRN (Reason: anxiety) latanoprost 0.005 % drops 1 drp LEFT EYE QHS Referrals / Follow Up: Kang Kenean MD [Primary Care Provider] - Within 1 Week Disposition Disposition (needs filled in before D/C Order can be placed): Home, Self Care
--- NOTE | 2024-03-23 09:53 | PCM.DC.SUM ---
Providers Date of Admission: 03/20/24 Date of Discharge: 03/23/24 Primary Care Physician: Dr. Kang Keenan MD Reason For Visit: CELLULITIS Diagnosis Discharge Diagnosis (1) Cellulitis: Status: Acute Code(s): L03.90 - Cellulitis, unspecified Plan #RLE cellulitis eythema of RLE thigh is improving. erythema of RLE over the lower leg area is worsening today. on IV unasyn and vancomycin. Duplex of RLE done is negative for any evidence of DVT continue antibiotics. wbc is down to 8.9 today will apply SHARONDA wraps to RLE #Hypokalemia: K is still 3.1. Will replace and trend. #Hypothyroidism; on synthroid. #Hyperlipidemia: on statin #Hypertension; on lisinopril and HCTZ. IV hydralazine prn DVT prophylaxis: lovenox. Medications at Discharge Home Medications alprazolam 0.25 mg tablet 0.125 mg PO DAILY PRN anxiety 03/20/24 aspirin 81 mg tablet,delayed release (Adult Aspirin Regimen) 81 mg PO DAILY HEART HEALTH 03/20/24 latanoprost 0.005 % eye drops 1 drp LEFT EYE QHS OTHER 03/20/24 levothyroxine 137 mcg tablet 137 mcg PO DAILY THYROID 03/20/24 lisinopril 20 mg-hydrochlorothiazide 25 mg tablet 1 tab PO DAILY BLOOD PRESSURE 03/20/24 lovastatin 20 mg tablet 20 mg PO DAILY CHOLESTEROL 03/20/24 omeprazole 40 mg capsule,delayed release 40 mg PO DAILY GERD 03/20/24 cephalexin 500 mg capsule 500 mg PO TID #21 caps 03/23/24 Hospital Course Operations None Procedures None Summary of Care Provided Minutes Spent on Discharge: 55 Hospital Course: Patient is an 83-year-old female with a past medical history as outlined was admitted through the ED on 03/20/2024 with a complaint of right lower extremity rash. She had associated low-grade fever and generalised malaise a few days prior to admission. She also had a rash on her right upper thigh. 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 White cell count was 20,000 on admission. She was admitted and managed for cellulitis and started on IV ceftriaxone and vancomycin. She had duplex of the right lower extremity which showed no evidence of DVT. The erythema on the right inner thigh resolved but the erythema on her right lower extremity persisted and leg became swollen. She had a straps applied and the redness and swelling went down significantly. She felt much better and was discharged home on 03/23/2024. She was discharged on p.o. Keflex for 7-day course. Blood cultures were negative at time of discharge. She is follow-up with her primary care doctor within 1 to 2 weeks. Patient seen and examined prior to discharge. She had no complaints and had an uneventful night. Review of systems otherwise negative. Labs and vitals reviewed. Home medication reviewed and reconciled. Physical Exam Const alert, oriented x3, no apparent distress and well nourished General Appearance: cooperative, comfortable, well kempt and well developed HEENT normocephalic, head/scalp atraumatic, hearing grossly normal bilaterally, moist oral mucous membranes and oropharynx normal Mouth: oral and palatal mucosa normal Eyes PERRL, EOMs intact bilaterally and conjunctivae normal Neck no lymphadenopathy and supple Lymph Lymphatic: no lymphadenopathy noted and no lymphedema noted Resp normal respiratory effort, normal air movement, no retractions, no use of accessory muscles and clear to auscultation bilaterally Cardio regular rate, regular rhythm, S1 normal heart sound, S2 normal heart sound and no murmurs GI normal to inspection, nondistended, normoactive bowel sounds, soft to palpation, non-tender and non-distended Extremity normal to inspection, normal capillary refill and no calf tenderness Extremity Narrative: Right lower extremity erythema has improved markedly. Swelling has also gone down. Skin Skin Narrative: as under extremity Neuro oriented x3, CN's II-XII intact bilaterally, moves all extremities, no focal motor deficits, no sensory deficits noted and deep tendon reflexes 2+ bilaterally Sensorium / Orientation: awake and alert Motor Exam: strength 5/5 throughout and general weakness Psych thought process normal, cooperative and affect normal Appearance: appropriate Weight / BMI Weight Weight: 188 lb 1.6 oz Body Mass Index (BMI) 34.4 ABG / Lab / Microbiology Data 03/23/24 06:19 03/23/24 06:19 Laboratory: Laboratory Results - last 24 hr 03/23/24 06:19: WBC 10.3, RBC 4.03 L, Hgb 12.6, Hct 39.0, MCV 96.8, MCH 31.3, MCHC 32.3, RDW Std Deviation 47.8 H, RDW Coeff of Lewis 13.2, Plt Count 257, MPV 10.0, Immature Gran % (Auto) 1.000 H, Neut % (Auto) 67.2, Lymph % (Auto) 16.7 L, [place] % (Auto) 10.3 H, Eos % (Auto) 4.1, Baso % (Auto) 0.7, Absolute Neuts (auto) 6.9, Absolute Lymphs (auto) 1.72, Nucleated RBC % 0, Sodium 141, Potassium 3.5, Chloride 108 H, Carbon Dioxide 28.0, Anion Gap 5, BUN 12, Creatinine 0.60, Estim Creat Clear Calc 55.89, Est GFR (MDRD) Af Amer 124, Est GFR (MDRD) Non-Af 102, BUN/Creatinine Ratio 20.0, Glucose 96, Calcium 9.5 Microbiology: Microbiology 03/20/24 13:03 Blood Culture (Wb) - Anticubital Right Blood Culture - Preliminary No growth in 48 hours. Radiography Diagnostic Testing: Radiology Impression Venous Doppler Study 03/21/24 09:30 Interpretation Summary Deep veins of the right lower extremity are patent and compressible segmentally. There is no evidence of right lower extremity deep vein thrombosis. Valvular competence appears intact within the proximal deep venous system on the right . The right great saphenous vein appears patent and compressible segmentally. Several vascularized structures are noted in the right groin, which may represent lymphadenopathy. Clinical correlation is advised. The left common femoral vein is patent and compressible . Ordering Physician: Catherine Johnson Referring Physician: Kang Keenan Performed By: Alesha Gonsales RVT D/C Instructions Discharge Diet: Low fat / Low cholesterol Discharge Activity: Return to Normal Activity Weight Bearing Status: Weight bearing as tolerated Call your doctor if you observe: Fever of 101 or Higher, Shortness of breath, Dizziness, Swelling in the ankles and Chest pain Meaningful Use Info Meaningful Use Meaningful Use Diagnoses (Choose all that apply): None applicable Ischemic Stroke Statin Dosing Therapy Reference: STATIN DOSE THERAPY REFERENCE: * Patients > 75 years receive moderate or high dose statin therapy. * Patients 75 years or YOUNGER should receive HIGH intensity statin dose unless contraindicated. You will be required to document reason for non-treatment if statin daily dose does not meet guidelines. HIGH DOSE STATIN THERAPY DAILY Atorvastatin > than or = to 40 mg Rosuvastatin > than or = to 20 mg Amlodipine + Atorvastatin > than or = to 2.5/40 mg Ezetimibe + Simvastatin 10/80 mg Simvastatin 80mg Discharge Plan Admission Admit Date/Time: 03/20/24 13:19 Primary Reason for Your Visit: cellulitis Attending Provider: Catherine Johnson Primary Care Provider: Kang Keenan Consulting Providers: Kapil Marc Instructions Patient Instructions: Cellulitis, Cellulitis Dc Discharge Orders/Prescriptions Prescriptions: New cephalexin 500 mg capsule 500 mg PO TID Qty: 21 0RF Continued lovastatin 20 mg tablet 20 mg PO DAILY omeprazole 40 mg capsule,delayed release(DR/EC) 40 mg PO DAILY lisinopril-hydrochlorothiazide 20-25 mg tablet 1 tab PO DAILY aspirin [Adult Aspirin Regimen] 81 mg tablet,delayed release (DR/EC) 81 mg PO DAILY levothyroxine 137 mcg tablet 137 mcg PO DAILY alprazolam 0.25 mg tablet 0.125 mg PO DAILY PRN (Reason: anxiety) latanoprost 0.005 % drops 1 drp LEFT EYE HS Referrals / Follow Up: Kang Keenan MD [Primary Care Provider] - Within 1 Week Disposition Disposition (needs filled in before D/C Order can be placed): Home, Self Care Charges/Coding Visit Charges Inpatient E&M: 15808 Disch Hosp >30min
[2024-03-23 11:00] VITALS: BP 137/77; PULSE 87; RESP 16; TEMP 36.4; O2SAT 96
--- NOTE | 2024-03-23 11:06 | CASEMGMT ---
RN CM NOTE: Discharge order is in. RN CM to room. Introduced self and role. Pt and family, who are @ bedside, deny having any discharge needs/concerns. Pt voices is pleased w/staff @ [facility] and the care she has received. Ivon DOCKERYN RN CM
--- NOTE | 2024-03-23 11:12 | PHA.DC.MC.R ---
Pharmacy [facility] Pharmacy Service has performed discharge medication reconciliation and counseling for this patient. 1. CEPHALEXIN 500MG PO TID X 7 DAYS The patient's discharge medication list was reviewed for discrepancies and discrepancies were resolved. The patient was counseled on the following discharge medications and changes in medications for homegoing were reviewed. The Reason for Use, instructions for use, and potential side effects were reviewed for all new medications. The patient's questions regarding all of their medications were answered. The patient was able to verbally demonstrate an understanding of their discharge medications. Medications at Discharge Home Medications alprazolam 0.25 mg tablet 0.125 mg PO DAILY PRN anxiety 03/20/24 aspirin 81 mg tablet,delayed release (Adult Aspirin Regimen) 81 mg PO DAILY HEART HEALTH 03/20/24 latanoprost 0.005 % eye drops 1 drp LEFT EYE QHS OTHER 03/20/24 levothyroxine 137 mcg tablet 137 mcg PO DAILY THYROID 03/20/24 lisinopril 20 mg-hydrochlorothiazide 25 mg tablet 1 tab PO DAILY BLOOD PRESSURE 03/20/24 lovastatin 20 mg tablet 20 mg PO DAILY CHOLESTEROL 03/20/24 omeprazole 40 mg capsule,delayed release 40 mg PO DAILY GERD 03/20/24 cephalexin 500 mg capsule 500 mg PO TID #21 caps 03/23/24
[2024-03-23] MEDS: Ibuprofen 600 MG Tablet PO (11:48)
== END 2024-03-23 13:44 | disposition home or self-care (01) | DRG 603 ==
LOC: ED 13:11 → MS3 13:26
PROVIDERS: Nurse Practitioner; Emergency Provider Emergency Medicine; PCP Family Medicine; Visit Provider Student in an Organized Health Care Education/Training Program
DX: L03.115 Cellulitis of right lower limb (principal); E03.9 Hypothyroidism, unspecified; I10 Essential (primary) hypertension; E78.5 Hyperlipidemia, unspecified; E87.6 Hypokalemia; Z79.890 Hormone replacement therapy; Z79.82 Long term (current) use of aspirin; Z79.899 Other long term (current) drug therapy
CPT/HCPCS: 36415; 73552; 73610; 73630; 80048; 80202; 83605; 85025; 87040; 93971; 97802; 99282; J7040; J7050; A4216; J0295